=== PATIENT | female | born 2000 | race Caucasian/White ===

== ENCOUNTER 2023-02-06 23:40 | Inpatient (IN) | payer SELFPAY ==
[~2023-02-06] VITALS: Ht 162.6 cm; Wt 77.0 kg
[2023-02-07] VITALS (7 sets, daily range): BP systolic 95–123; BP diastolic 44–63; PULSE 83–94; TEMP 98.1–99.2
[2023-02-07 00:22] LABS: HEMATOCRIT 48.2 % (37.0-47.0); HEMOGLOBIN 15.9 g/dl (12.5-16.0); MEAN CELL VOLUME 86 fl (80.0-100.0); MEAN CORPUSCULAR HEMOGLOBIN 28 pg (27-31); MEAN CORPUSCULAR HGB CONC 33 g/dl (33.0-37.0); MEAN PLATELET VOLUME 10.2 fl (7.4-10.4); PLATELET COUNT 399 K/mm3 (130-400); REDCELL DISTRIBUTION WIDTH-CV 12.1 % (11.5-14.5)
[2023-02-07 00:35] LABS: ALBUMIN 4.7 gm/dL (3.5-5.0); BILIRUBIN,TOTAL 0.5 mg/dL (0.2-1.2); C-REACTIVE PROTEIN 0.28 mg/dL (0.00-0.50); CALCIUM 9.7 mg/dL (8.4-10.2); CREATININE, serum 1.14 mg/dL (0.57-1.11); POTASSIUM 3.7 mmol/L (3.5-4.5); TOTAL PROTEIN 8.2 gm/dL (6.2-8.1)
[2023-02-07 00:44] LABS: BAND 9 % (0-10); EOSINOPHIL 2 % (0-4); LYMPHOCYTE 5 % (20.0-51.0); NEUTROPHILS 79 % (42.0-75.2); PLATELET ESTIMATE NORMAL (NORMAL)
[2023-02-07] MEDS ORDERED: DAILY MULTIPLE1 T18 (03:29)
[2023-02-07] MEDS ORDERED: LO LOESTRIN FE1 TAB PO (03:29)
[2023-02-07 05:08] LABS: CLOSTRIDIUM DIFF A/B NEG; CLOSTRIDIUM DIFF A/B INTERP NonToxigenic C.diff
--- NOTE | 2023-02-07 06:16 | NUR ---
THE PT ARRIVED ALERT AND ORIENTED. NO S/S OF DISTRESS NOTED. THE PATIENT WAS ORIENTED TO THE ROOM AND BED CONTROLS. WILL MONITOR. CALL LIGHT WITHIN REACH.
[2023-02-07 06:59] LABS: PH 5.5 (5.0-8.5); URINE APPEARANCE Clear (CLEAR/HAZY); URINE BLOOD 1+ (NEGATIVE); URINE COLOR Yellow (YELLOW); URINE GLUCOSE Negative (NEGATIVE); URINE KETONE Negative (NEGATIVE); URINE NITRATE Negative (NEGATIVE); URINE PROTEIN(semi-quant) Negative (NEGATIVE); URINE UROBILINOGEN 0.2 E.U/dL (0.2-1.0)
[2023-02-07 07:01] LABS: COLLECTION METHOD CLEAN CATCH
[2023-02-07 07:02] LABS: MUCOUS Present (NOT PRESENT); SQUAMOUS EPITHELIAL 0-2 /hpf (0-10); URINE BACTERIA Rare /hpf (NONE SEEN); URINE RBC 0-2 /hpf (0-2)
[2023-02-07 07:06] LABS: HEMATOCRIT 40.2 % (37.0-47.0); INR 1.3 (0.8-3.0); MEAN CELL VOLUME 88 fl (80.0-100.0); MEAN CORPUSCULAR HGB CONC 33 g/dl (33.0-37.0); MEAN PLATELET VOLUME 10.6 fl (7.4-10.4); PROTHROMBIN TIME 15.1 SECONDS (9.7-12.8); RED BLOOD COUNT 4.56 M/mm3 (4.10-5.30); REDCELL DISTRIBUTION WIDTH-CV 12.1 % (11.5-14.5)
[2023-02-07 07:10] LABS: CALCIUM 8.2 mg/dL (8.4-10.2); CREATININE, serum 0.83 mg/dL (0.57-1.11); HEMOGLOBIN 13.2 g/dl (12.5-16.0); MEAN CORPUSCULAR HEMOGLOBIN 29 pg (27-31); PLATELET COUNT 290 K/mm3 (130-400); POTASSIUM 4.3 mmol/L (3.5-4.5)
[2023-02-07 08:04] LABS: BAND 21 % (0-10); LYMPHOCYTE 3 % (20.0-51.0); NEUTROPHILS 74 % (42.0-75.2); PLATELET ESTIMATE NORMAL (NORMAL)
--- NOTE | 2023-02-07 10:16 | NUR ---
SHIFT ASSESSMENT COMPLETED AND MORNING MEDICATIONS ADMINISTERED PER ORDER. PATIENT IS ALERT AND ORIENTED X4. C/O PAIN RANGING FROM 0-5/10 TO HER ABD, STATES SHE DOES NOT WANT PAIN MEDICATION AT THIS TIME AND WOULD LIKE TO SEE HOW SHE DOES. C/O VOMITING, ZOFRAN GIVEN PER ORDER. STATES SHE IS STILL HAVING DIARRHEA WITH SCANT BRIGHT RED BLOOD. DENIES FURTHER NEEDS OR CONCERNS. CALL LIGHT WITHIN REACH.
--- NOTE | 2023-02-07 15:58 | NUR ---
SW attempted to call patient to complete intake, unable to reach. SW will attempt intake at a later time.
--- NOTE | 2023-02-07 16:24 | NUR ---
TELE REMOVED PER ORDER
--- NOTE | 2023-02-07 18:20 | NUR ---
PATIENT IN BED AT THIS TIME. DENIES PAIN AT THE TIME. NO FURTHER EMESIS. FAMILY AT BEDSIDE. LR RUNNING, PATIENT TOLERATING WELL. DENIES NEEDS. CALL LIGHT WITHIN REACH.
[2023-02-08 05:01] VITALS: BP 106/57; PULSE 97; TEMP 98.3
--- NOTE | 2023-02-08 06:27 | NUR ---
Patient care, medication administration and nursing documentation occurred during a Daylight Savings Time Change.
[2023-02-08 06:52] LABS: BASO % 0.4 % (0.0-2.0); EOS # 0.2 K/mm3 (0.0-0.7); EOS % 2.9 % (0.0-4.0); GRAN # 2.9 K/mm3 (1.4-6.5); GRAN % 55.4 % (42.2-75.2); HEMOGLOBIN 12.1 g/dl (12.5-16.0); LYMPH # 1.7 K/mm3 (1.2-3.4); LYMPH % 32.5 % (20.0-51.0); MEAN CELL VOLUME 86 fl (80.0-100.0); MEAN CORPUSCULAR HEMOGLOBIN 28 pg (27-31); MEAN CORPUSCULAR HGB CONC 33 g/dl (33.0-37.0); MEAN PLATELET VOLUME 10.8 fl (7.4-10.4); MONO # 0.4 K/mm3 (0.1-0.6); MONO % 8.6 % (1.7-9.3); PLATELET COUNT 217 K/mm3 (130-400); RED BLOOD COUNT 4.28 M/mm3 (4.10-5.30)
[2023-02-08 06:53] LABS: HEMATOCRIT 36.7 % (37.0-47.0)
[2023-02-08 07:17] LABS: CREATININE, serum 0.8 mg/dL (0.57-1.11); MAGNESIUM 1.5 mg/dL (1.6-2.6); POTASSIUM 3.4 mmol/L (3.5-4.5)
[2023-02-08 08:17] VITALS: BP 95/49; PULSE 70; TEMP 98.5
--- NOTE | 2023-02-08 08:47 | NUR ---
NURSING SHIFT ASSESSMENT COMPLETED. THE PATIENT REPORTED ABD PAIN 6/10 AND NAUSEA. MORPHINE AND ZOFRAN PRN GIVEN. SEE MAR. FRESH WATER WAS PROVIDED. NO OTHER NEEDS AT THIS TIME. WILL MONITOR.
--- NOTE | 2023-02-08 10:41 | NUR ---
SHIFT ASSESSMENT COMPLETED AND MORNING MEDICATIONS ADMINISTERED PER ORDER. PATIENT IS ALERT AND ORIENTED X4. C/O MILD HEADACHE, PRN PAIN MEDICATION OFFERED, PATIENT STATES SHE WOULD LIKE TO REST AT THIS TIME AND DENIES NEED FOR PAIN MEDICATION. DENIES NAUSEA OR VOMITING. STATES SHE IS STILL HAVING DIARRHEA, BUT DENIES FURTHER BLOOD IN HER STOOL. DENIES NEEDS. CALL LIGHT WITHIN REACH.
[2023-02-08 11:15] VITALS: BP 114/57; PULSE 84; TEMP 97.6
--- NOTE | 2023-02-08 14:47 | NUR ---
SW tried to call pt, no answer.
[2023-02-08 15:40] VITALS: BP 109/66; PULSE 77; TEMP 97.9
--- NOTE | 2023-02-08 18:13 | NUR ---
PATIENT IN BED AT THIS TIME RESTING. DENIES PAIN. ON IV FLUIDS, TOLERATING WELL. FAMILY AT BEDSIDE. CALL LIGHT WITHIN REACH. DENIES ANY VOMITING/NAUSEA. CONTINUES TO HAVE SOME DIARRHEA, DENIES BLOODY STOOL.
[2023-02-08 20:14] VITALS: BP 108/70; PULSE 76; TEMP 98.4
[2023-02-09 01:01] VITALS: BP 110/53; PULSE 59; TEMP 98.5
--- NOTE | 2023-02-09 02:48 | NUR ---
NURSING SHIFT ASSESSMENT COMPLETED. THE PATIENT IS ALERT AND ORIENTED AND APPROPRIATE. THE PATIENT DENIES N/V AND LESS DIARRHEA THAN DAYS PRIOR. NO NEEDS EXPRESSED AT THIS TIME. THE PLAN OF CARE AND EVENING MEDS DISCUSSED. WILL MONITOR.
[2023-02-09 04:18] VITALS: BP 117/51; PULSE 78; TEMP 97.6
[2023-02-09 08:00] VITALS: BP 99/55; PULSE 61; TEMP 98
[2023-02-09] MEDS ORDERED: ZOFRAN ODT4 MG PO (08:46)
[2023-02-09] MEDS ORDERED: VANCOCIN H125 MG/CAP PO (08:50)
--- NOTE | 2023-02-09 09:52 | NUR ---
PT SITTING UP IN BED UPON ENTERING ROOM. MORNING MEDICATIONS GIVEN. SHIFT ASSESSMENT COMPLETED. PT REPORTS MILD ABDOMINAL PAIN /, STATES IT HAS IMPROVED. PT CONTINUIES TO HAVE FREQUENT WATERY STOOLS. IVF INFUSING. CALL LIGHT WITHIN REACH. DENIES ANY PAIN OR NEEDS. PLANS TO D/C TODAY. WILL CONTINUE TO MONITOR.
--- NOTE | 2023-02-09 10:31 | NUR ---
The hospitalist team notified [facility] that the patient is being discharged today and they will be prescribing two medications. The patient is listed as self pay. The patient is positive for Norovirus. [facility] contacted the patient to follow up. The patient confirms that she lives alone in [place] and is a part time flexible clerk employee at the [employer]. She states that she does not have health insurance. [facility] utilized [facility] for the two medications that the patient is being prescribed. The cheapest being at [employer]. [facility] informed the patient of the salcedo. The patient states that her mother has a flex spend card that she can use and that she would be able to afford the two medications at [facility]. She had no other concersn for [facility]. The patient was secured a follow up appointment at [facility] on 02/24 at 0900. [facility]Z placed the [facility] coupons in the patient's discharge folder. JEZ informed her patient's RN of this. No additional needs at this time.
--- NOTE | 2023-02-09 11:01 | NUR ---
DISCHARGE INSTRUCTIONS REVIEWED. IV D/C. ALL QUESTIONS ANSWERED. PT WILL BE ESCORTED OFF OF UNIT BY VIA [facility] STAFF. WILL D/C FROM SYSTEM.
== END 2023-02-09 11:05 | disposition home or self-care (01) | DRG 872 ==
LOC: COL.ER 23:40 → MEDICAL 02-07 04:10
PROVIDERS: Emergency Medicine; Internal Medicine; Nurse Practitioner Family; ADMIT Internal Medicine
DX: A41.9 Sepsis, unspecified organism (principal); K92.1 Melena; N17.9 Acute kidney failure, unspecified; E87.20 Acidosis, unspecified; A08.11 Acute gastroenteropathy due to Norwalk agent; R65.20 Severe sepsis without septic shock; E83.42 Hypomagnesemia; E87.6 Hypokalemia; R73.9 Hyperglycemia, unspecified; I95.9 Hypotension, unspecified; B96.89 Other specified bacterial agents as the cause of diseases classified elsewhere; Z88.0 Allergy status to penicillin; Z88.2 Allergy status to sulfonamides
CPT/HCPCS: J2270; J2405; J2765; J3010; J3475; J7030; J7120; Q9967